=== PATIENT | female | born 1995 | race Caucasian/White ===

== ENCOUNTER 2017-10-05 18:09 | Emergency (ER) | payer OTHER ==
[2017-10-05 18:19] VITALS: BP 102/53
--- NOTE | 2017-10-05 18:58 | UC ---
Lower Extremity/Ankle HPI - HPI Summary HPI Summary: Patient states she noticed some discoloration yesterday on left foot. Denies history of trauma yesterday but on 09-25-17 had laceration of left doan after falling on the edge of platform where she was practicing boxing. Stitches were placed, denies pain on site of laceration. LMD today 10-05-17, on IUD. - History of Current Complaint Chief Complaint: UCLowerExtremity Stated Complaint: FOOT SWELLING Time Seen by Provider: 10/05/17 18:45 Hx Obtained From: Patient Hx Last Menstrual Period: 10/05/17 ?: No Onset/Duration: Sudden Onset Severity Initially: Mild Severity Currently: None Pain Scale Used: 0-10 Numeric - 0 - Allergies/Home Medications Allergies/Adverse Reactions: Allergies Allergy/AdvReac Type Severity Reaction Status Date / Time Gadolinium Allergy Itching Verified 10/05/17 18:19 Home Medications: Home Medications Ferrous Fumarate [Iron] 18 mg PO 10/05/17 [History] Iud* 10/05/17 [History] PMH/Surg Hx/FS Hx/Imm Hx Previously Healthy: Yes - Surgical History Surgical History: Yes Surgery Procedure, Year, and Place: CYST REMOVED- Lt FOOT - Social History Alcohol Use: None Substance Use Type: None Smoking Status (MU): Never Smoked Tobacco Review of Systems Constitutional: Negative All Other Systems Reviewed And Are Negative: Yes Physical Exam Triage Information Reviewed: Yes Vital Signs: Initial Vital Signs Temp 98.8 F 10/05/17 18:16 Pulse 48 10/05/17 18:16 Resp 16 10/05/17 18:16 BP 102/53 10/05/17 18:16 Pulse Ox 100 10/05/17 18:16 Vital Signs Reviewed: Yes Musculoskeletal Exam: Other - granulation tissue on laceration s/p suture repair left doan. No erythema, or discharge, non tender on soft tissue. Small hematoma on medial aspect posterior arch left foot. Calf circumference 13 in b/l , garzon negative, no pedal edema. Feet and hands are cold with capillary refill time at around 2sec Musculoskeletal: Positive: Strength Intact, ROM Intact, No Edema Lower Extremity Course/Dx - Course Course Of Treatment: hematoma left foot from previous laceration. continue care and return for suture removal with PCP as indicated. - Differential Dx/Diagnosis Provider Diagnoses: left foot hematoma Discharge - Discharge Plan Condition: Stable Disposition: HOME Patient Education Materials: Hematoma (ED), Raynaud Disease (ED) Referrals: Belkis Alejo DO [Primary Care Provider] -
== END 2017-10-05 19:20 | disposition home or self-care (01) ==
LOC: UCEAST 18:09
DX: S90.32XA Contusion of left foot, initial encounter (principal); W17.89XA Other fall from one level to another, initial encounter; X58.XXXA Exposure to other specified factors, initial encounter; Y93.9 Activity, unspecified; Y92.9 Unspecified place or not applicable; S81.812D Laceration without foreign body, left lower leg, subsequent encounter; W18.30XD Fall on same level, unspecified, subsequent encounter; Z97.5 Presence of (intrauterine) contraceptive device
CPT/HCPCS: 99211; G0463

== ENCOUNTER 2019-04-03 14:13 | Emergency (ER) | payer OTHER ==
[2019-04-03 14:22] VITALS: BP 103/57
--- NOTE | 2019-04-03 14:57 | UC ---
Ear Complaint HPI - HPI Summary HPI Summary: Went swimming on Mon and since then feels fullness and pressure in L ear w/ some pain. Denies fever, gallagher. - History of Current Complaint Chief Complaint: UCEar Stated Complaint: EAR PAIN Time Seen by Provider: 04/03/19 14:50 Hx Obtained From: Patient Hx Last Menstrual Period: 03/15/19 Pain Intensity: 2 Pain Scale Used: 0-10 Numeric Aggravating Factors: Nothing Alleviating Factors: Nothing Associated Signs/Symptoms: Negative: Hearing Loss - Allergies/Home Medications Allergies/Adverse Reactions: Allergies Allergy/AdvReac Type Severity Reaction Status Date / Time contrast Allergy Itching Uncoded 04/03/19 14:23 Home Medications: Home Medications Montelukast Sodium TAB* [Singulair 10 MG TAB*] 1 tab PO DAILY 04/03/19 [History Confirmed 04/03/19] PMH/Surg Hx/FS Hx/Imm Hx - Additional Past Medical History Additional PMH: ALLERGIES - Surgical History Surgical History: Yes Surgery Procedure, Year, and Place: LT FOOT - CYST REMOVED - Family History Known Family History: Positive: Non-Contributory - Social History Alcohol Use: None Substance Use Type: None Smoking Status (MU): Never Smoked Tobacco Review of Systems All Other Systems Reviewed And Are Negative: Yes Constitutional: Negative: Fever Skin: Negative: Rash ENT: Positive: Ear Ache. Negative: Sore Throat, Nasal Discharge, Sinus Congestion Respiratory: Positive: Negative Cardiovascular: Positive: Negative Neurological: Negative: Headache Physical Exam Triage Information Reviewed: Yes Appearance: Well-Appearing Vital Signs: Initial Vital Signs Temp 99 F 04/03/19 14:20 Pulse 59 04/03/19 14:20 Resp 17 04/03/19 14:20 BP 103/57 04/03/19 14:20 Pulse Ox 100 04/03/19 14:20 Vital Signs Reviewed: Yes ENT: Positive: Other - L CANAL HAS INFLAMMATION, PAIN W/ OTOSCOPE INSERTION AND A SMALL PUSTULE Neck: Positive: Supple, Nontender, No Lymphadenopathy Neurological: Positive: Alert Skin: Negative: Rashes Ear Complaint Course/Dx - Course Course Of Treatment: L OE after swimming on Mon. Will tx w/ drops. TM intact but does have feeling of fullness. Plan is to tx and am hoping after tx of infection, feeling of fullness will resolve. Vitals good. - Differential Dx/Diagnosis Provider Diagnosis: Otitis externa Discharge - Sign-Out/Discharge Documenting (check all that apply): Patient Departure All imaging exams completed and their final reports reviewed: No Studies - Discharge Plan Condition: Good Disposition: HOME Prescriptions: Neomyc/Polym/HC 1% OTIC SUSP* [Cortisporin Otic Susp 1%*] 4 drop LEFT EAR TID 7 Days #1 btl Patient Education Materials: Otitis Externa (ED) Referrals: Christy Marcus DO [Primary Care Provider] - - Billing Disposition and Condition Condition: GOOD Disposition: Home
== END 2019-04-03 15:20 | disposition home or self-care (01) ==
LOC: UCEAST 14:13
DX: H60.92 Unspecified otitis externa, left ear (principal)
CPT/HCPCS: 99212; G0463

== ENCOUNTER 2019-10-09 07:03 | Day surgery (SDC) | payer OTHER ==
[~2019-10-09 07:03] MED LIST: Buffered Lidocaine 1% SYRIN* 1 ML/SYRINGE INTRADERM ONE; Dexamethasone TAB* 4 MG PO ONE; DiMENhydriNATE IV* 50 MG/ML VIAL IV PUSH PRN; Famotidine IV* 10 MG/ML 2 ML (20 mg) IV ONE; HYDROmorphone INJ1* 1 MG/ML SYRINGE IV PRN; Lactated Ringers 1000 ML Bag* 1,000 ML IV SCH; Naloxone* 0.4 MG/ML 1 ML VIAL IV PRN; Ondansetron ODT TAB* 4 MG PO ONE; PROCHLORPERAZINE INJ 5 MG/ML 2 ML VIAL IV PRN; fentaNYL* 50 MCG/ML 2 ML VIAL (100 MCG VIAL) IV PRN; oxyCODONE TAB* 5 MG TAB PO PRN
[2019-10-09] MEDS ORDERED: Ondansetron ODT TAB* 4 MG ONE (07:21)
[2019-10-09] MEDS ORDERED: Dexamethasone TAB* 4 MG ONE (07:21)
[2019-10-09] MEDS ORDERED: Famotidine IV* 10 MG/ML 2 ML (20 mg) ONE (07:21)
[2019-10-09] MEDS ORDERED: ceFAZolin 2 GM in NS PREMIX(*) 2 GM/100 ML BAG IVPB ONE (07:21)
[2019-10-09] MEDS ORDERED: Midazolam* 1 MG/ML 5 ML VIAL (5 MG) ONE (08:27)
[2019-10-09] MEDS ORDERED: fentaNYL* 50 MCG/ML 2 ML VIAL (100 MCG VIAL) ONE (08:28)
[2019-10-09] MEDS ORDERED: Bupivacaine 0.25% SDV* 30 ML ONE (08:31)
[2019-10-09] MEDS ORDERED: Lidocaine 1% INJ* 10 MG/ML 30 ML SDV ONE (08:31)
[2019-10-09] MEDS ORDERED: Glycopyrrolate IV* 0.2 MG/ML 1 ML VIAL ONE (08:47)
[2019-10-09] MEDS ORDERED: Propofol* 10 MG/ML 20 ML BTL ONE (08:47)
[2019-10-09] MEDS ORDERED: Ketorolac INJ* 30 MG/ML 1 ML VIAL ONE (09:00)
--- NOTE | 2019-10-09 09:23 | OP ---
Operative Report - Blank - Operative Report Date of Operation: 10/09/19 Note: PATIENT: Simona Leone DATE OF : 1995 DATE OF SURGERY: 10/09/2019 SURGEON: Pepe Huston MD FURNACE TAPPER: RANJITH Morrow, whos assistance was necessary for positioning, retraction, help with instrumentation, and closure. ANESTHESIOLOGIST: Dr. Hanson PREOPERATIVE DIAGNOSIS: Left foot ganglion cyst POSTOPERATIVE DIAGNOSIS: Left foot ganglion cyst OPERATION: Left foot ganglion cyst excision ANESTHESIA: MAC with local anesthesia provided by surgeon IMPLANTS: none TOURNIQUET TIME: Less than 30 minutes with an ankle Esmarch tourniquet SPECIMENS: None ESTIMATED BLOOD LOSS: minimal COMPLICATIONS: none STATUS: Stable from the operating room to the recovery room and then home. INDICATIONS FOR PROCEDURE: Simona has had persistent pain from a left foot ganglion cyst. Both operative and non operative treatment alternatives were reviewed. Further, the nature and risks of surgery were reviewed in careful detail, in the office as well as the pre-operative holding area. Our discussions regarding the risks of surgery included, but were not limited to, infection, wound problems, nerve injury, neuroma, RSD, persistent symptoms, blood clot, recurrence, failure of the surgery, and even the remote chance of catastrophic complication. DESCRIPTION OF PROCEDURE: The patient was seen in the preoperative holding unit and informed written consent was obtained. The appropriate extremity was marked. The patient was then brought to the operating room and carefully positioned on the operating room table. Anesthesia was induced. All bony prominences were padded with great care. A chlorhexidine based pre-scrub was performed followed by a chloraprep prep and drape in standard sterile fashion. A surgical safety pause was then conducted in which we confirmed the appropriate patient, extremity, planned procedure, availability of equipment, indication and administration of prophylactic antibiotics, and DVT prophylaxis in the form of a compression boot on the non-surgical extremity. We began with Esmarch exsanguination of the limb and placement of an ankle Esmarch tourniquet. An incision was made just medial to EHL over the cyst and then careful blunt dissection was made to get down to the deep layer overlying the cyst. Blunt dissection was then utilized to define the cyst, which was quite small. The cyst was then amputated at its stalk, which clearly tracked to the medial aspect of the naviculocuneiform joint. The cyst ruptured and clear/ yellow gelatinous fluid was expressed, consistent with a ganglion cyst. The cyst was excised. Cautery was used to ablate the cysts stalk. No bony prominences were palpated at the joint which would be amenable to saucerization. The tourniquet was then let down and hemostasis achieved. The toe was pink, well-perfused and with excellent capillary refill. At this point, we irrigated copiously and then closed in layers meticulously utilizing 3-0 Monocryl and 3-0 nylon for the skin. A sterile dressing was then applied. The patient was then awakened from anesthesia and transferred to the recovery room in stable condition. There were no complications. All needle and sponge counts were correct at the end of the case. ATTESTATION: I attest I was present and scrubbed and performed the critical portions of the procedure myself. POSTOPERATIVE PLAN: She will follow-up in 2 weeks for likely suture removal.
[2019-10-09 10:34] VITALS: BP 106/63
== END 2019-10-09 10:38 | disposition home or self-care (01) ==
LOC: OR 07:03
PROVIDERS: ATTEND Orthopaedic Surgery
DX: M67.472 Ganglion, left ankle and foot (principal)
CPT/HCPCS: 81025; A9270-GY; J0690; J1885; J2250; J2704; J3010; J3490; J8540